=== PATIENT | female | born 1965 | race Caucasian/White ===

== ENCOUNTER 2016-12-16 11:22 | Emergency (ER) | payer BC, OTHER ==
[2016-12-16 12:19] VITALS: BP 101/65
[2016-12-16] MEDS ORDERED: HYDROcodone/ACETAMIN 5-325 MG* 1 TAB PO ONE (12:51)
--- NOTE | 2016-12-16 13:00 | UC ---
Knee Pain HPI - HPI Summary HPI Summary: right knee pain---has had past orthopedic surgeries on knee for soft tissue injuries - History of Current Complaint Chief Complaint: UCLowerExtremity Stated Complaint: RIGHT LEG PAIN Time Seen by Provider: 12/16/16 12:41 Hx Obtained From: Patient Hx Last Menstrual Period: n/a ?: No Onset/Duration: Gradual Onset, Lasting Weeks, Worse Since - last night Severity Initially: Moderate Severity Currently: Moderate Pain Intensity: 9 Pain Scale Used: 0-10 Numeric Character: Aching, Throbbing Aggravating Factor(s): Movement Alleviating Factor(s): Rest, Position Associated Signs And Symptoms: Positive: Negative Able to Bear Weight: No - needs a cane - Allergies/Home Medications Allergies/Adverse Reactions: Allergies Allergy/AdvReac Type Severity Reaction Status Date / Time Prochlorperazine Allergy Severe muscle Verified 12/16/16 12:19 [From Compazine] spasms Home Medications: Home Medications flavoxATE TAB* [Urispas TAB*] 100 mg PO BID 12/16/16 [History Confirmed 12/16/16 ] PMH/Surg Hx/FS Hx/Imm Hx Previously Healthy: No - anemia GI/ History Of: Reports: Renal Disease - STONES Psychological History Of: Reports: Bipolar Disorder - Surgical History Surgical History: Yes Surgery Procedure, Year, and Place: right knee surgery,B/l Carpal tunnel release T&A, gallbladder removed, bariatric surgery 2008 - Family History Known Family History: Positive: Hypertension - mother Negative: Cardiac Disease, Diabetes - Social History Occupation: Employed Full-time Lives: With Family Alcohol Use: Occasionally Substance Use Type: None Smoking Status (MU): Never Smoked Tobacco Review of Systems Constitutional: Negative Skin: Negative Eyes: Negative ENT: Negative Respiratory: Negative Cardiovascular: Negative Gastrointestinal: Negative Genitourinary: Negative Motor: Negative Neurovascular: Negative Musculoskeletal: Arthralgia - right knee Neurological: Negative Psychological: Negative All Other Systems Reviewed And Are Negative: Yes Physical Exam Triage Information Reviewed: Yes Appearance: Well-Appearing, Well-Nourished, Pain Distress Vital Signs: Initial Vital Signs Temp 98.1 F 12/16/16 12:13 Pulse 74 12/16/16 12:13 Resp 14 12/16/16 12:13 BP 101/65 12/16/16 12:13 Pulse Ox 98 12/16/16 12:13 Vital Signs Reviewed: Yes Eye Exam: Normal Eyes: Positive: Conjunctiva Clear ENT Exam: Normal ENT: Positive: Normal ENT inspection, Hearing grossly normal. Negative: Nasal congestion, Nasal drainage, Trismus, Muffled/hoarse voice Dental Exam: Normal Neck exam: Normal Neck: Positive: Supple, Nontender, No Lymphadenopathy Respiratory Exam: Normal Respiratory: Positive: Chest non-tender, No respiratory distress, No accessory muscle use Cardiovascular Exam: Normal Cardiovascular: Positive: RRR, Pulses Normal, Brisk Capillary Refill Musculoskeletal Exam: Normal Musculoskeletal: Positive: Strength Intact, ROM Intact, No Edema, Other: - pain with distal medial palpation Neurological Exam: Normal Neurological: Positive: Alert, Muscle Tone Normal Psychological Exam: Normal Skin Exam: Normal Diagnostics - Radiology No standard instances Xray Interpretation: Positive (See Comments) - joint effusion right knee Radiology Interpretation Completed By: Radiologist Knee Pain Course/Dx - Course Course Of Treatment: knee imm. crutches, rice follow with ortho - Differential Dx/Diagnosis Differential Diagnosis/HQI/PQRI: Bursitis, Fracture (Closed), Internal Derangement Of Knee, Sprain, Strain Provider Diagnoses: Joint effusion right knee Discharge - Discharge Plan Condition: Stable Disposition: HOME Prescriptions: Naproxen Sodium [Naproxen Sodium 500 MG TAB] 500 mg PO BID #30 tab Patient Education Materials: Tramadol (By mouth), Swollen Knee Joint (ED), RICE Therapy (ED) Referrals: William Darnell MD [Medical Doctor] - 3 Days Yolanda Ludwig MD [Primary Care Provider] -
--- NOTE | 2016-12-16 13:16 | RAD ---
INDICATION: Right knee pain. TECHNIQUE: 4 views of the right knee were obtained. FINDINGS: The bones are normal alignment. There is a joint effusion present. No fracture is seen. Joint spaces appear maintained. No arthritic change is seen. IMPRESSION: JOINT EFFUSION.
== END 2016-12-16 13:55 | disposition home or self-care (01) ==
LOC: UCCORT 11:22
DX: M25.461 Effusion, right knee (principal); Z88.8 Allergy status to other drugs, medicaments and biological substances; Z87.442 Personal history of urinary calculi; F31.9 Bipolar disorder, unspecified; Z90.49 Acquired absence of other specified parts of digestive tract; Z98.84 Bariatric surgery status
CPT/HCPCS: 99213; G0463

== ENCOUNTER 2017-03-11 06:37 | Day surgery (SDC) | payer OTHER ==
[~2017-03-11 06:37] MED LIST: Buffered Lidocaine 0.9% SYRIN* 5 ML/SYR SYRINGE INTRADERM ONE; Buffered Lidocaine 0.9% SYRIN* 5 ML/SYR SYRINGE ONE; Dexamethasone IV* 4 MG/ML 1 ML (4 MG) ONE; ceFAZolin 2 GM PREMIX(*) 2 GM/50 ML BAG IVPB ONE
[2017-03-11] MEDS ORDERED: Bupivacaine 0.25% SDV* 30 ML ONE (07:02)
[2017-03-11] MEDS ORDERED: Bupivacaine 0.25% EPI 200,000* 30 ML SDV ONE (07:02)
[2017-03-11] MEDS: Dexamethasone IV* 4 MG/ML 1 ML (4 MG) IV SLOW PU ONE (07:25)
[2017-03-11] MEDS ORDERED: Midazolam* 1 MG/ML 2 ML VIAL (2 MG) ONE (07:35)
[2017-03-11] MEDS ORDERED: fentaNYL* 50 MCG/ML 5 ML VIAL (250 MCG VIAL) ONE (07:35)
[2017-03-11] MEDS ORDERED: Ondansetron INJ* 2 MG/ML VIAL ONE (07:35)
[2017-03-11] MEDS ORDERED: Ketorolac INJ* 30 MG/ML 1 ML VIAL ONE (07:35)
[2017-03-11] MEDS ORDERED: Phenylephrine IV* 40 MCG/ML 10 ML SYRINGE ONE (07:35)
[2017-03-11] MEDS ORDERED: Lidocaine 2% PF * 5 ML VIAL ONE (07:35)
[2017-03-11] MEDS ORDERED: Propofol* 10 MG/ML 20 ML BTL IV PUSH ONE (07:35)
[2017-03-11] MEDS ORDERED: EPHEDrine (Pressors)* 50 MG/ML VIAL ONE (07:35)
[2017-03-11] MEDS ORDERED: DiMENhydriNATE IV* 50 MG/ML VIAL IV PUSH PRN (08:26)
[2017-03-11] MEDS ORDERED: oxyCODONE/Acetamin 5/325 MG* TAB PO PRN (08:26)
[2017-03-11] MEDS ORDERED: fentaNYL* 50 MCG/ML 2 ML VIAL (100 MCG VIAL) IV PRN (08:26)
[2017-03-11] MEDS ORDERED: Ondansetron INJ* 2 MG/ML VIAL IV PRN (08:26)
[2017-03-11] MEDS ORDERED: diPHENhydraMINE IV* 25 MG in NS 0.9% 50 ML* 50 ML IVPB ONE (09:17)
[2017-03-11] MEDS ORDERED: diPHENhydraMINE IV* 50 MG/ML 1 ml VIAL (BENADRYL) ONE (09:18)
[2017-03-11 10:08] VITALS: BP 110/70
--- NOTE | 2017-03-12 14:36 | OP ---
CC: PCP, Dr. Ludwig * DATE OF OPERATION: 03/11/17 - [facility] DATE OF : 61 SURGEON: Ramirez Ceja MD BANQUET LINE COOK: CHARLOTTE Spear. An assistant professor of sociology was needed for the entirety of the case to help with positioning, retraction, and was utilized throughout all portions of the case. ANESTHESIOLOGIST: Dr. Man ANESTHESIA: General. PRE-OP DIAGNOSIS: Right knee medial meniscus tear. POST-OP DIAGNOSES: Right knee medial meniscus tear, lateral meniscus tear, synovitis as well as loose body. OPERATIVE PROCEDURE: Right knee arthroscopy with: 1. Partial medial meniscectomy. 2. Partial lateral meniscectomy. 3. Removal of loose body greater than 5 mm x1 and anterior synovectomy. COMPLICATIONS: None. ESTIMATED BLOOD LOSS: Minimal. INDICATIONS: Christine Nicholas is a 51-year-old female who sustained injury to her knee several months ago when she was walking up some stairs. She states that she has tried a course of physical therapy as well as an injection. The injection did not help for prolonged period of time. She has failed conservative management. CT arthrogram was done that demonstrated no obvious tear but her symptoms and her catching and locking mechanisms are consistent with meniscal tear. After an extensive discussion of the risks and benefits of operative versus nonoperative treatment, she has elected to proceed with surgery. Risks include but are not limited to bleeding, infection, damage to nerves, vessels, surrounding structures, the wound not healing, persistent pain , need for further surgery, risk of anesthesia, risk of DVT, incomplete relief of symptoms, need for further surgery. DESCRIPTION OF PROCEDURE: The patient was greeted in the preoperative area by the attending surgeon. Correct extremity was marked and consent was confirmed. The patient was then brought back to the operative suite where she was placed in the supine position on the operating table. She then underwent general anesthesia endotracheal intubation after which a nonsterile tourniquet was placed high in the proximal thigh. The lateral post was positioned. The patient was then appropriately positioned on the bed. All bony prominences were padded. The right knee was prepped and draped in usual sterile fashion beginning with chlorhexidine soap and scrub, and alcohol wipe and a final prep with ChloraPrep. After appropriate surgical pause indicating side, site, procedure and administration of antibiotics, the standard initial lateral port was made sharply with 11 blade, the scope was introduced to the joint, joint was examined. There was abundant erythema and hyperemia in the joint. There was evidence of one large loose body in the medial gutter. There was abundant synovectomy, inferiorly, anteriorly about the patella as well as medial and lateral compartments. There were grade 0 to 1 changes in the patellofemoral joints. The scope was brought to the notch, ACL and PCL were intact but there is abundant erythema, hyperemia. Medial meniscus was examined, there was an unstable tear with a clipped piece that was deep in the gutter. There was evidence of loose piece > 5mm. The medial femoral condyle and medial tib plateau had grade 0 to 1 changes with no obvious arthritis. Minimal arthritic changes. The lateral compartments were examined and there was mild fraying of the body of the meniscus, but there were no obvious tears. The lateral femoral compartment had grade 0 to 1 changes along with femoral condyle and the tibia. The medial compartments were addressed first by removing the loose body as well as using biters and leslye to gently remove the torn meniscus. Again, there was a large piece that was folded underneath the meniscus that was caught, which was removed. The meniscectomy was taken place until there was no further unstable tissue. After this was complete, the attention was directed to the lateral compartment and the small unstable flaps were debrided back using a shaver. The meniscal fraying was debrided back using a shaver blade. After which, attention was directed to the synovectomy. There was abundant hyperemic tissue and this required the electrocautery device to help maintain hemostasis as well as remove the abundant scar. Hemostasis was obtained carefully. The knee was thoroughly lavaged and removed of all fluid and debris. The portal sites were closed with 3-0 nylon. The knee was intra-articularly injected with 0.25% Marcaine plain. Sterile dressings were applied and the patient was awoken from anesthesia, transferred to PACU in stable condition. POSTOPERATIVE PLAN: She will be weightbearing as tolerated. She will be allowed range of motion as tolerated. Her dressing will stay on till day 3. She will be discharged on pain medications as well as antibiotics as she has had previous surgery before. She cannot take aspirin for DVT prophylaxis and so she will be monitored closely. She has no personal or family history of DVT. She will be discharged on pain medications. [id number]/[facility] #: [id number] RESHMA
== END 2017-03-11 10:15 | disposition home or self-care (01) ==
LOC: OREAST 06:37
PROVIDERS: ATTEND Orthopaedic Surgery
DX: S83.241A Other tear of medial meniscus, current injury, right knee, initial encounter (principal); S83.281A Other tear of lateral meniscus, current injury, right knee, initial encounter; M65.861 Other synovitis and tenosynovitis, right lower leg; X50.0XXA Overexertion from strenuous movement or load, initial encounter; Y93.89 Activity, other specified; Y92.9 Unspecified place or not applicable
CPT/HCPCS: J0690; J1100; J1200; J1885; J2250; J2405; J2704; J3010

== ENCOUNTER 2018-10-28 12:09 | Emergency (ER) | payer BC, OTHER ==
[2018-10-28 13:29] VITALS: BP 102/62
[2018-10-28 13:48] LABS: Influenza A Molecular NEGATIVE (Negative); Influenza B Molecular NEGATIVE (Negative)
--- NOTE | 2018-10-28 14:15 | UC ---
Respiratory Complaint HPI - HPI Summary HPI Summary: cough x 5 days fever, chills , body aches, nasal congestion , sinus pain and pressure severe fatigue started yesterday , difficulty keeping her eyes open, unsteady on her feet no chest pain , no sob - History of Current Complaint Chief Complaint: UCRespiratory Stated Complaint: SINUSES, COUGH, FEVER Time Seen by Provider: 10/28/18 13:31 Hx Obtained From: Patient Hx Last Menstrual Period: n/a ?: No Onset/Duration: Gradual Onset, Lasting Days - 5, Still Present, Worse Since - yesterday Timing: Constant Severity Initially: Moderate Severity Currently: Severe Pain Intensity: 0 Pain Scale Used: 0-10 Numeric Character: Cough: Nonproductive Aggravating Factors: Exertion Alleviating Factors: Nothing Associated Signs And Symptoms: Positive: Fever, Chills, URI, Nasal Congestion, Sinus Discomfort. Negative: Dyspnea, Wheezing - Allergies/Home Medications Allergies/Adverse Reactions: Allergies Allergy/AdvReac Type Severity Reaction Status Date / Time prochlorperazine Allergy Severe See Comment Verified 10/28/18 13:18 NEURO STIMULATOR FOR AdvReac See Comment Uncoded 10/28/18 13:18 BLADDER PMH/Surg Hx/FS Hx/Imm Hx - Additional Past Medical History Additional PMH: interstitial cystitis bipolar reflux interstern in back - Surgical History Surgical History: Yes Surgery Procedure, Year, and Place: right knee surgery,B/l Carpal tunnel release T&A, gallbladder removed, bariatric surgery 2008. interstern in back - Family History Known Family History: Positive: Hypertension - mother Negative: Cardiac Disease, Diabetes - Social History Alcohol Use: Occasionally Substance Use Type: None Smoking Status (MU): Never Smoked Tobacco Review of Systems All Other Systems Reviewed And Are Negative: Yes Constitutional: Positive: Fever, Chills, Fatigue Skin: Positive: Negative Eyes: Positive: Negative ENT: Positive: Nasal Discharge Respiratory: Positive: Cough Cardiovascular: Positive: Negative Neurological: Positive: Weakness Is Patient Immunocompromised?: No Physical Exam Triage Information Reviewed: Yes Appearance: Ill-Appearing Vital Signs: Initial Vital Signs Temp 100.9 F 10/28/18 13:24 Pulse 83 10/28/18 13:24 Resp 14 10/28/18 13:24 BP 102/62 10/28/18 13:24 Pulse Ox 96 10/28/18 13:24 Vital Signs Reviewed: Yes Eyes: Positive: Conjunctiva Clear ENT: Positive: Normal ENT inspection, Hearing grossly normal, Pharynx normal Neck exam: Normal Neck: Positive: Supple, Nontender, No Lymphadenopathy Respiratory: Positive: Chest non-tender, Lungs clear, Normal breath sounds Cardiovascular: Positive: RRR, No Murmur, Pulses Normal Abdominal Exam: Normal Abdomen Description: Positive: Nontender, Soft. Negative: CVA Tenderness (R), CVA Tenderness (L), Distended, Guarding Bowel Sounds: Positive: Present Skin Exam: Normal Diagnostics - Radiology No standard instances Radiology Interpretation Completed By: Radiologist Summary of Radiographic Findings: chest xray : IMPRESSION: #. No evidence for acute intrathoracic disease. Respiratory Course/Dx - Differential Dx/Diagnosis Provider Diagnosis: Fatigue, Cough Discharge - Sign-Out/Discharge Documenting (check all that apply): Patient Departure All imaging exams completed and their final reports reviewed: Yes - Discharge Plan Condition: Fair Disposition: TRANS HIGHER LVL OF CARE FAC Patient Education Materials: Fatigue (ED) Referrals: Yolanda Ludwig MD [Primary Care Provider] - Additional Instructions: cough , severe weakness chest xray negative for pneumonia , negative rapid Flu please go to [facility] Ed for evaluation and tx now - Billing Disposition and Condition Condition: FAIR Disposition: Trans Higher Lvl of Care Fac
== END 2018-10-28 14:01 | disposition short-term general hospital (02) ==
LOC: UCCORT 12:09
DX: R05 Cough (principal); R53.83 Other fatigue; R09.81 Nasal congestion; R09.89 Other specified symptoms and signs involving the circulatory and respiratory systems; Z88.8 Allergy status to other drugs, medicaments and biological substances
CPT/HCPCS: 71046; 99212; G0463

== ENCOUNTER 2018-10-28 15:00 | Emergency (ER) | payer BC ==
[2018-10-28] MEDS ORDERED: NS 0.9% 1000 ML** 2,000 ML IV ONE (16:16)
[2018-10-28] MEDS ORDERED: Ketorolac INJ* 30 MG/ML 1 ML VIAL IV ONE (16:16)
--- NOTE | 2018-10-28 16:22 | ED ---
HPI Febrile Illness - HPI Summary HPI Summary: This pt is a 53 y/o [place] [facility] [place] [facility] for fever, cough, fatigue for the past 4 days. reports pt's symptoms began 4 days ago with nasal congestion, sinus pain, and low grade fever. Pt notes associated symptoms of fatigue, productive cough with green sputum, headache, chest pain across her chest. She describes burning in her nose when she breathes in. Pt states she took 2 antibiotic pills she had left yesterday without relief. Pt went to Urgent Care today where she had a negative flu test and negative chest XR. She was referred to the ED from Urgent Care. Pt denies tobacco use. - History of Current Complaint Chief Complaint: EDUpperRespComplaint Time Seen by Provider: 10/28/18 15:55 Hx Obtained From: Patient, Family/Food Inspector - Hx Last Menstrual Period: n/a Onset/Duration: Started Days Ago, Still Present Timing: Lasting Days Current Severity: Mild Pain Intensity: 3 - nose Pain Scale Used: 0-10 Numeric Aggravating Factors: Nothing Alleviating Factors: Nothing Associated Signs and Symptoms: Cough, Headache, Other: - POS: nasal congestion, sinus pain, chest pain, fatigue. - Allergy/Home Medications Allergies/Adverse Reactions: Allergies Allergy/AdvReac Type Severity Reaction Status Date / Time prochlorperazine Allergy Severe See Comment Verified 10/28/18 13:18 NEURO STIMULATOR FOR AdvReac See Comment Uncoded 10/28/18 13:18 BLADDER Home Medications: Home Medications ALPRAZolam TAB* [Xanax TAB*] 0.5 mg PO TID PRN 10/28/18 [History Confirmed 10/28] Carbidopa/Levodop 25/100 MG(*) [Sinemet 25/100 TAB(*)] 1 tab PO BEDTIME [History Confirmed 10/28/18] Dexlansoprazole (NF) [Dexilant (NF)] 60 mg PO QAM 10/28/18 [History Confirmed ] Multivitamins/Minerals TAB* [Theragran/minerals TAB*] 1 tab PO DAILY 10/28/18 [ History Confirmed 10/28/18] Pyridoxine TAB* [Vitamin B6 TAB*] 50 mg PO QAM 10/28/18 [History Confirmed 10/28] lamoTRIgine TAB(*) [LaMICtal TAB(*)] 50 mg PO DAILY 10/28/18 [History Confirmed 10/28/18] PMH/Surg Hx/FS Hx/Imm Hx Endocrine/Hematology History: Reports: Hx Anemia - on iron complex GI History: Reports: Hx Gastroesophageal Reflux Disease, Other GI Disorders - GASTRIC BYPASS. RENAL STONES History: Reports: Hx Kidney Stones - both kidneys filled with calcium stones , Hx Renal Disease - STONES Musculoskeletal History: Reports: Hx Arthritis Sensory History: Reports: Hx Contacts or Glasses - glasses Denies: Hx Hearing Aid Opthamlomology History: Reports: Hx Contacts or Glasses - glasses Psychiatric History: Reports: Hx Anxiety, Hx Depression, Hx Bipolar Disorder - Cancer History Hx Chemotherapy: No - Surgical History Surgery Procedure, Year, and Place: right knee surgery,B/l Carpal tunnel release T&A, gallbladder removed, bariatric surgery 2008. interstern in back Hx Anesthesia Reactions: No - Immunization History Date of Tetanus Vaccine: Pt states 2008 Date of Influenza Vaccine: never Infectious Disease History: No Infectious Disease History: Reports: Hx Shingles Denies: Hx Clostridium Difficile, Hx Hepatitis, Hx Human Immunodeficiency Virus (HIV), Hx of Known/Suspected MRSA, Hx Tuberculosis, Hx Known/Suspected VRE , Hx Known/Suspected VRSA, History Other Infectious Disease, Traveled Outside the [place] in Last 30 Days - Family History Known Family History: Positive: Hypertension - mother Negative: Cardiac Disease, Diabetes - Social History Alcohol Use: Occasionally Substance Use Type: Reports: None Smoking Status (MU): Never Smoked Tobacco Review of Systems Positive: Fever, Fatigue ENT: Other - POS: nasal congestion, sinus pain Positive: Chest Pain Positive: Cough. Negative: Shortness Of Breath Positive: Headache All Other Systems Reviewed And Are Negative: Yes Physical Exam - Summary Physical Exam Summary: Appearance: Well appearing, no pain distress Skin: warm, dry, reflects adequate perfusion Head/face: normal Eyes: EOMI, ALYSE ENT: normal Neck: supple, non-tender Respiratory: CTA, breath sounds present Cardiovascular: RRR, pulses symmetrical Abdomen: non-tender, soft Musculoskeletal: normal, strength/ROM intact Neuro: normal, sensory motor intact, A&Ox3 GCS: 15 Triage Information Reviewed: Yes Vital Signs On Initial Exam: Initial Vitals Temp Pulse Resp BP Pulse Ox 100.5 F 87 18 121/63 98 10/28/18 15:06 10/28/18 15:06 10/28/18 15:06 10/28/18 15:06 10/28/18 15:06 Vital Signs Reviewed: Yes Diagnostics - Vital Signs Vital Signs Temp Pulse Resp BP Pulse Ox 10/28/18 15:06 100.5 F 87 18 121/63 98 - Laboratory Result Diagrams: 10/28/18 16:46 10/28/18 16:46 Lab Statement: Any lab studies that have been ordered have been reviewed, and results considered in the medical decision making process. - CT Brain CT CT Interpretation Completed By: Radiologist Summary of CT Findings: IMPRESSION: 1. There is mild mucosal thickening in the ethmoid and maxillary sinuses. No dependent fluid levels and therefore not specific for acute sinusitis. 2. No acute intracranial pathology. Dr. Ramírez has reviewed this report. - EKG 16:37 Cardiac Rate: NL - at 71 bpm EKG Rhythm: Sinus Rhythm Summary of EKG Findings: ST-T changes. Re-Evaluation - Re-Evaluation First Eval Re-Evaluation Time: 18:20 Comment: Pt refused IV fluids and toradol. She does not want to be hospitalized and wants to be discharged home. Course/Dx - Course Assessment/Plan: Pt is a 53 y/o female who presents to the ED referred from [facility] for fever, cough, fatigue for the past 4 days. reports pt's symptoms began 4 days ago with nasal congestion, sinus pain, and low grade fever. Pt had chest XR that was negative in Urgent Care. Influenza was negative at Urgent Care. Blood work, urinalysis, CT obtained. Brain CT shows 1. There is mild mucosal thickening in the ethmoid and maxillary sinuses. No dependent fluid levels and therefore not specific for acute sinusitis. 2. No acute intracranial pathology. Pt received Tylenol for the fever and Augmentin in the ED course. Pt refused IV fluids and Toradol. She does not want to be hospitalized and would like to be discharged home. Pt will be discharged home with follow up from her PCP in 3 days. She was given rx for Augmentin and Afrin nasal spray. Pt was instructed to return to the ED for any worsening or new symptoms. - Febrile Illness Differential Diagnoses: Pneumonia, Sepsis, Viremia - Diagnoses Provider Diagnoses: Fever, Sinusitis, Upper respiratory infection Discharge - Sign-Out/Discharge Documenting (check all that apply): Patient Departure - Discharge home Patient Received Moderate/Deep Sedation with Procedure: No - Discharge Plan Condition: Stable Disposition: HOME Prescriptions: Amoxicillin/Clavulanate TAB* [Augmentin TAB 875*] 875 mg PO BID #20 tab Oxymetazoline 0.05% NASAL SPR* [Afrin 0.05% NASAL SPRAY*] 1 spray NASAL Q12H PRN #1 btl MDD 2 PRN Reason: Congestion Patient Education Materials: Sinusitis (ED), Fever in Adults (ED), Upper Respiratory Infection (ED) Referrals: Yolanda Ludwig MD [Primary Care Provider] - Additional Instructions: Please follow up with your primary care provider in 3 days. RETURN TO THE ED FOR ANY WORSENING OR NEW SYMPTOMS. - Billing Disposition and Condition Condition: STABLE Disposition: Home - Attestation Statements Document Initiated by Shazia: Yes Documenting Scribe: Nicole Siddiqui Provider For Whom Ameeibe is Documenting (Include Credential): Sina Ramírez MD Scribe Attestation: Nicole Iqbal scribed for Sina Ramírez MD on 10/28/18 at 1904. Scribe Documentation Reviewed: Yes Provider Attestation: The documentation as recorded by the Nicole dillard accurately reflects the service I personally performed and the decisions made by Sina cruz MD Status of Scribe Document: Viewed
[2018-10-28 17:00] LABS: ABS Basophils 0 10^3/ul (0-0.2); ABS Eosinophils 0.1 10^3/ul (0-0.6); ABS Lymphocytes 0.9 10^3/ul (1.0-4.8); ABS Monocytes 0.5 10^3/ul (0-0.8); ABS Neutrophils 1.9 10^3/ul (1.5-7.7); ABS Nucleated RBC 0 10^3/ul; Eosinophil % 1.9 %; Hematocrit 40 % (33-41); Hemoglobin 13.3 g/dL (12.0-16.0); Lymphocyte % 26.8 %; Mean Corpuscular HGB Conc 34 g/dL (31-36); Mean Corpuscular Hemoglobin 30 pg (27-31); Mean Corpuscular Volume 89 fL (80-97); Mean Platelet Volume 8.7 fL (7.4-10.4); Nucleated Red Blood Cells % 0; Platelet Count 164 10^3/uL (150-450); Red Blood Count 4.49 10^6 /uL (3.70-4.87); Red Cell Distribution Width 14 % (10.5-15); White Blood Count 3.3 10^3/uL (3.5-10.8)
[2018-10-28 17:09] LABS: Activated Partial Thrombo Time 33.6 seconds (26.0-36.3); INR 1.01 (0.77-1.02)
[2018-10-28 17:17] LABS: Albumin 3.8 g/dL (3.2-5.2); Albumin/Globulin Ratio 1.5 (1-3); BUN/Creatinine Ratio 24.7 (8-20); Calcium 8.7 mg/dL (8.6-10.3); EGFR African American 94.2 (>60); EGFR Non-African American 77.8 (>60); Globulin 2.6 g/dL (2-4); Potassium 3.8 mmol/L (3.5-5.0); Total Bilirubin 0.2 mg/dL (0.2-1.0); Total Protein 6.4 g/dL (6.4-8.9)
[2018-10-28 17:24] LABS: Urine Appearance Clear; Urine Bacteria Absent (Absent); Urine Bilirubin Negative (Negative); Urine Blood 1+ (Negative); Urine Color Yellow; Urine Glucose Negative (Negative); Urine Ketones Negative (Negative); Urine Nitrite Negative (Negative); Urine Protein Negative (Negative); Urine Red Blood Cell Trace(0-2/hpf) (Absent); Urine Specific Gravity 1.014 (1.010-1.030); Urine Squamous Epithelial Cell Present (Absent); Urine Urobilinogen Negative (Negative); Urine White Blood Cell Trace(0-5/hpf) (Absent)
[2018-10-28] MEDS ORDERED: Acetaminophen TAB* 325 MG PO ONE (17:45)
[2018-10-28] MEDS ORDERED: Acetaminophen TAB* 325 MG ONE (17:46)
[2018-10-28] MEDS ORDERED: Amoxicillin/Clavulanate TAB* 875 MG PO ONE (18:32)
[2018-10-28 19:15] VITALS: BP 81/53
== END 2018-10-28 19:16 | disposition home or self-care (01) ==
LOC: ED 15:00
DX: J32.2 Chronic ethmoidal sinusitis (principal); J32.0 Chronic maxillary sinusitis; J06.9 Acute upper respiratory infection, unspecified; R50.9 Fever, unspecified; D64.9 Anemia, unspecified; K21.9 Gastro-esophageal reflux disease without esophagitis; F41.9 Anxiety disorder, unspecified; F31.9 Bipolar disorder, unspecified; Z88.8 Allergy status to other drugs, medicaments and biological substances
CPT/HCPCS: 36415; 70450; 80053; 81003; 81015; 83605; 84484; 85025; 85610; 85730; 87040; 87077; 87086; 93005; 99283; A9270-GY

== ENCOUNTER 2019-09-08 09:16 | Emergency (ER) | payer BC ==
[2019-09-08] MEDS ORDERED: NS 0.9% 1000 ML** 1,000 ML IV ONE (09:34)
--- NOTE | 2019-09-08 09:40 | ED ---
Complex/Multi-Sys Presentation - HPI Summary HPI Summary: 54-year-old female with a significant past medical history of Temo-en-Y gastric bypass in 2009, PTSD, bipolar disorder, depression, interstitial cystitis, diverticulitis presents to the emergency department today complaining of increased weakness. Patient states approximately 4 days ago she felt like she had the flu and went to urgent care where she was given doxycycline for sinus infection at that time she was influenza negative. Patient currently endorses symptoms of fatigue, nasal congestion, mild shortness of breath, abdominal pain , fever. Patient states due to her symptoms she has had decreased oral intake and she has had no appetite. Patient denies chest pain, rash, pain with urination, nausea, vomiting, diarrhea. - History Of Current Complaint Chief Complaint: EDWeakness Time Seen by Provider: 09/08/19 09:26 Hx Obtained From: Patient Onset/Duration: Gradual Onset Timing: Constant Severity Currently: Moderate Severity Initially: Moderate Associated Signs And Symptoms: Positive: Weakness, Cough, Wheezing, Abdominal Pain, Decreased Oral Intake, Fever. Negative: Edema, Nausea, Vomiting, Back Pain Related History: Recent Illness - Allergies/Home Medications Allergies/Adverse Reactions: Allergies Allergy/AdvReac Type Severity Reaction Status Date / Time prochlorperazine Allergy Severe See Comment Verified 10/28/18 13:18 Penicillins Allergy Diarrhea Verified 09/08/19 09:22 NEURO STIMULATOR FOR AdvReac See Comment Uncoded 10/28/18 13:18 BLADDER Home Medications: Home Medications Bladder Instillation-Cystitis 1 admin BLADDER .2-3X/WEEK PRN 09/08/19 [History Confirmed 09/08/19] Carbidopa/Levodopa [Carbidopa-Levodopa 25-100 Tab] 1 each PO TID 09/08/19 [ History Confirmed 09/08/19] D-Methorphan/PE/Acetaminophen [Cold Multi-Symptom Daytim] 1 tab PO DAILY PRN 11/22 [History Confirmed 09/08/19] DOXYcycline CAP(*) [DOXYcycline 100MG CAP(*)] 100 mg PO BID 09/08/19 [History Confirmed 09/08/19] Famotidine TAB* [Pepcid 20 MG TAB*] 40 mg PO BID 09/08/19 [History Confirmed 11/22] L.acidoph,Paracasei, B.lactis [Probiotic] 1 each PO DAILY 09/08/19 [History Confirmed 09/08/19] Pyridoxine TAB* [Vitamin B6 TAB*] 50 mg PO DAILY 09/08/19 [History Confirmed 11/22] Topiramate [Topiramate ER 200 mg cap] 200 mg PO BID 09/08/19 [History Confirmed 09/08/19] PMH/Surg Hx/FS Hx/Imm Hx Endocrine/Hematology History: Reports: Hx Anemia - on iron complex GI History: Reports: Hx Gastroesophageal Reflux Disease, Other GI Disorders - GASTRIC BYPASS. RENAL STONES History: Reports: Hx Kidney Stones - both kidneys filled with calcium stones , Hx Renal Disease - STONES Musculoskeletal History: Reports: Hx Arthritis Sensory History: Reports: Hx Contacts or Glasses - glasses Denies: Hx Hearing Aid Opthamlomology History: Reports: Hx Contacts or Glasses - glasses Psychiatric History: Reports: Hx Anxiety, Hx Depression, Hx Bipolar Disorder - Cancer History Hx Chemotherapy: No - Surgical History Surgery Procedure, Year, and Place: right knee surgery,B/l Carpal tunnel release T&A, gallbladder removed, bariatric surgery 2009. interstern in back Hx Anesthesia Reactions: No - Immunization History Date of Tetanus Vaccine: Pt states 2008 Date of Influenza Vaccine: never Infectious Disease History: No Infectious Disease History: Reports: Hx Shingles Denies: Hx Clostridium Difficile, Hx Hepatitis, Hx Human Immunodeficiency Virus (HIV), Hx of Known/Suspected MRSA, Hx Tuberculosis, Hx Known/Suspected VRE , Hx Known/Suspected VRSA, History Other Infectious Disease, Traveled Outside the [place] in Last 30 Days - Family History Known Family History: Positive: Hypertension - mother Negative: Cardiac Disease, Diabetes - Social History Alcohol Use: Occasionally Substance Use Type: Reports: None Smoking Status (MU): Never Smoked Tobacco Review of Systems Positive: Fever, Fatigue Eyes: Negative Positive: Nasal Discharge. Negative: Epistaxis, Dental Pain, Sore Throat, Ear Ache Cardiovascular: Negative Positive: Shortness Of Breath, Cough Positive: Abdominal Pain. Negative: Vomiting, Diarrhea Genitourinary: Negative Musculoskeletal: Negative Skin: Negative Positive: Weakness. Negative: Paresthesia, Numbness, Syncope, Slurred Speech Psychological: Normal All Other Systems Reviewed And Are Negative: Yes Physical Exam - Summary Physical Exam Summary: Patient appears very fatigued on exam. There is good skin turgor with mild pallor of the skin. Patient is in no respiratory distress with no evidence of accessory muscle use. Auscultation reveals diminished lung sounds due to patient's decreased effort. Auscultation heart reveals normal S1 and S2 with regular rate and rhythm. Triage Information Reviewed: Yes Vital Signs On Initial Exam: Initial Vitals Temp Pulse Resp BP Pulse Ox 98.3 F 56 16 102/72 99 09/08/19 09:17 09/08/19 09:17 09/08/19 09:17 09/08/19 09:17 09/08/19 09:17 Vital Signs Reviewed: Yes Appearance: Positive: No Pain Distress, Well-Nourished, Ill-Appearing Skin: Positive: Warm, Skin Color Reflects Adequate Perfusion Eyes: Positive: EOMI, ALYSE ENT: Positive: Hearing grossly normal Respiratory/Lung Sounds: Positive: Clear to Auscultation, Breath Sounds Present , Decreased Breath Sounds Cardiovascular: Positive: RRR, S1, S2 Abdomen Description: Positive: Nontender, Soft Bowel Sounds: Positive: Present Musculoskeletal: Positive: Strength/ROM Intact Neurological: Positive: Sensory/Motor Intact, Alert, Oriented to Person Place, Time, Normal Gait, Facial Symmetry, Speech Normal Psychiatric: Positive: Normal, Affect/Mood Appropriate AVPU Assessment: Alert Procedures - Sedation Patient Received Moderate/Deep Sedation with Procedure: No Diagnostics - Vital Signs Vital Signs Temp Pulse Resp BP Pulse Ox 09/08/19 09:17 98.3 F 56 16 102/72 99 - Laboratory Result Diagrams: 09/08/19 09:49 09/08/19 09:49 Lab Statement: Any lab studies that have been ordered have been reviewed, and results considered in the medical decision making process. Complex Multi-Symp Course/Dx Course Of Treatment: Patient was evaluated in the emergency department today for weakness. Vitals noted. Patient had mild bradycardia at 50 bpm. EKG was done promptly which shows no evidence of STEMI. Sinus bradycardia rate of 50 bpm. Normal axis. Normal DC and QTC intervals. EKG shows no concerning changes compared to prior done on 10-28-2018. Chest x-ray negative for pathology. Laboratory studies returned showing no leukocytosis or elevation in CRP. Troponin 0.01. Influenza negative. There are no significant electrolyte abnormalities or evidence of anemia. TSH within normal limits. BUS is mildly elevated at 27 likely due to dehydration. AST 44, ALT 77 which are elevated however not significantly when compared to patient's prior. Patient is likely dehydrated causing secondary weakness. Patient was stable and able to ambulate around the emergency department. Patient discharged with outpatient follow-up. - Diagnoses Differential Diagnoses/HQI/PQRI: CVA, Metabolic Abnormality, Urinary Tract Infection Provider Diagnoses: Weakness Discharge ED - Sign-Out/Discharge Documenting (check all that apply): Patient Departure - Discharge Plan Condition: Stable Disposition: HOME Patient Education Materials: Weakness (ED) Referrals: Yolanda Ludwig MD [Primary Care Provider] - 3 Days Additional Instructions: You were seen in the emergency department today due to weakness. Laboratory studies were done which show no evidence of acute medical problems requiring intervention at this time. During your stay it was noted that your liver enzymes were mildly elevated; please follow-up with your primary care provider about this issue. Please follow-up with your primary care provider in 3 days for further evaluation and management. Please return to the emergency department immediately if you develop any new or worsening symptoms. - Billing Disposition and Condition Condition: STABLE Disposition: Home
[2019-09-08 10:02] LABS: ABS Eosinophils 0.1 10^3/ul (0-0.6); ABS Lymphocytes 1.3 10^3/ul (1.0-4.8); ABS Monocytes 0.5 10^3/ul (0-0.8); ABS Neutrophils 3.9 10^3/ul (1.5-7.7); Eosinophil % 1.2 %; Hematocrit 39 % (35-47); Hemoglobin 12.6 g/dL (12.0-16.0); Lymphocyte % 22.5 %; Mean Corpuscular HGB Conc 33 g/dL (31-36); Mean Corpuscular Hemoglobin 29 pg (27-31); Mean Corpuscular Volume 89 fL (80-97); Mean Platelet Volume 8.4 fL (7.4-10.4); Platelet Count 225 10^3/uL (150-450); Red Blood Count 4.34 10^6 /uL (3.70-4.87); Red Cell Distribution Width 14 % (10-15); White Blood Count 5.8 10^3/uL (3.5-10.8)
[2019-09-08 10:21] LABS: Albumin 3.4 g/dL (3.2-5.2); Albumin/Globulin Ratio 1.3 (1-3); BUN/Creatinine Ratio 32.1 (8-20); C Reactive Protein 4.2 mg/L (<8.01); Calcium 8.5 mg/dL (8.6-10.3); EGFR African American 84.9 (>60); EGFR Non-African American 70.1 (>60); Globulin 2.6 g/dL (2-4); Potassium 3.6 mmol/L (3.5-5.0); Total Bilirubin 0.2 mg/dL (0.2-1.0)
[2019-09-08 10:22] LABS: Influenza A Molecular Negative (Negative); Influenza B Molecular Negative (Negative)
[2019-09-08 10:22] LABS: Troponin I 0.01 ng/mL (<0.03)
[2019-09-08] MEDS ORDERED: Thiamine INJ* 100 MG, Folic Acid IV* 1 MG, Multiple Vitamin IV ADULT* 10 ML in NS 0.9% ... IV ONE (10:49)
[2019-09-08 11:07] LABS: TSH (Thyroid Stimulating Horm) 1.92 mcIU/mL (0.34-5.60)
[2019-09-08 13:25] VITALS: BP 91/56
== END 2019-09-08 13:24 | disposition home or self-care (01) ==
LOC: ED 09:16
DX: R53.1 Weakness (principal); D64.9 Anemia, unspecified; K21.9 Gastro-esophageal reflux disease without esophagitis; F41.9 Anxiety disorder, unspecified; F31.9 Bipolar disorder, unspecified; Z90.49 Acquired absence of other specified parts of digestive tract; Z98.84 Bariatric surgery status; Z87.442 Personal history of urinary calculi; Z79.899 Other long term (current) drug therapy; Z88.0 Allergy status to penicillin; Z88.8 Allergy status to other drugs, medicaments and biological substances
CPT/HCPCS: 36415; 71046; 80053; 83605; 83690; 83735; 84443; 84484; 85025; 86140; 93005; 96361; 96365; 96366; 99283; J3411